=== PATIENT | female | born 1950 | race Caucasian/White ===

== ENCOUNTER 2020-06-03 09:33 | Emergency (ER) | payer MEDICARE, BC ==
[2020-06-03] MEDS ORDERED: Sodium Chloride 0.9% 10 ML Syringe FLUSH PRN (10:09)
--- NOTE | 2020-06-03 10:11 | PCM.EKG ---
#1 Interpretation EKG Date: 06/03/20 Time: 09:47 Rhythm: NSR Rate (Beats/Min): 58 Belva: Normal P-Wave: Present QRS: Normal ST-T: Normal QT: Normal Comparison: NA - No Prior EKG
[2020-06-03 10:33] VITALS: BP 126/54; PULSE 56
[2020-06-03 10:57] LABS: CHLORIDE,CL 105 mmol/L (98-107); SODIUM,NA 142 mmol/L (136-145)
--- NOTE | 2020-06-03 11:16 | CR ---
[id number] RAD/RAD Ankle Left 3V Min EXAM: RAD Ankle Left 3V Min INDICATION: INJURY/PAIN. COMPARISON: None. DISCUSSION: A well-corticated 9 x 4 mm ossicle along the medial malleolus is compatible with either an accessory ossicle or chronic ununited avulsion fracture. Tibiotalar joint effusion. Tiny age-indeterminate capsular avulsion fracture off the anterior aspect of the distal tibia seen on the lateral view. Mild tibiotalar osteoarthritis. Small plantar calcaneal spur and Achilles attachment enthesophyte. Osseous ridge along the dorsal aspect of the talar head. Midfoot osteoarthritis. IMPRESSION: 1. Tiny age-indeterminate avulsion fracture off the capsular attachment site on the anterior margin of the distal tibia. Aftab Christensen MD 06/03/20 2550 Thank you for allowing us to participate in the care of your patient.
--- NOTE | 2020-06-03 11:50 | EDM.PDOC ---
ED HPI GENERAL MEDICAL PROBLEM - General Chief Complaint: Syncope Stated Complaint: PASSED OUT Time Seen by Provider: 06/03/20 09:40 Source of Information: Reports: Patient History Limitations: Reports: No Limitations - History of Present Illness INITIAL COMMENTS - FREE TEXT/NARRATIVE: Patient comes to the emergency department today with her with concerns of a syncopal episode. As patient got up this morning did not have breakfast. She went to [place] Thursday [facility] where she was there for quite some time. She was having to stand for an extended period of time and she started to get weak in the knees and lightheaded. Somewhat nauseous. She then sat down and eventually had a syncopal episode where she woke up immediately following. She did not hit her head. She has no head neck or back pain. Prior to the symptom development she did not have any vertigo chest pain shortness of breath difficulty breathing. No paresthesias. No palpitations no diplopia. She is now feeling normal when she gets to the emergency department. The only thing she complains about is some pain to the left lateral aspect of her ankle on the lateral malleolus. She denies any paresthesias to her left lower extremity. She has had no recent fever chills cough or congestion. No exposure to anyone ill. No abdominal pain nausea or vomiting. No hematuria dysuria or urinary frequency. No cough or congestion. She does have a history of atrial fibrillation many years ago but she is not anticoagulated for this she is on metoprolol for rate control but has not had any recurrence of her atrial fibrillation.NO Covid exposure no Covid symptoms. Left Ankle Pain Score (Numeric/FACES): 2 - Related Data Allergies Allergy/AdvReac Type Severity Reaction Status Date / Time No Known Allergies Allergy Verified 06/03/20 10:26 Home Meds: Home Meds Metoprolol Tartrate 12.5 mg PO DAILY 06/03/20 [History] Multivitamin with Minerals [Multiple Vitamin] 1 tab PO DAILY 06/03/20 [History] atorvaSTATin [Lipitor] 10 mg PO BEDTIME 06/03/20 [History] Past Medical History Cardiovascular History: Reports: Afib, High Cholesterol, Hypertension Endocrine/Metabolic History: Reports: Hypothyroidism Social & Family History - Tobacco Use Tobacco Use Status *Q: Never Tobacco User ED ROS GENERAL - Review of Systems Review Of Systems: Comprehensive ROS is negative, except as noted in HPI. - Physical Exam Exam: See Below Exam Limited By: No Limitations General Appearance: Alert, WD/WN, No Apparent Distress Eye Exam: Bilateral Eye: EOMI, PERRL Ears: Normal External Exam Nose: Normal Inspection Throat/Mouth: Normal Inspection Head Exam: Atraumatic, Normocephalic Neck: Normal Inspection, Supple, Non-Tender, Full Range of Motion. No: Carotid Bruit Respiratory/Chest: No Respiratory Distress, Lungs Clear, Normal Breath Sounds, No Accessory Muscle Use, Chest Non-Tender Cardiovascular: Normal Peripheral Pulses, Regular Rate, Rhythm, No Murmur GI/Abdominal: Normal Bowel Sounds, Soft (Female) Exam: Deferred Rectal (Female) Exam: Deferred Neuro Exam (Abbreviated): Alert, Oriented, Normal Cognition, No Motor/Sensory Deficits Back Exam: Normal Inspection, Full Range of Motion Extremities: Normal Range of Motion, Non-Tender, No Pedal Edema, Normal Capillary Refill. No: Normal Inspection (Normal upper and right lower extremity. Left ankle she has some tenderness over the lateral malleolus small amount of swelling. No bruising no swelling. Able to flex and extend appropriately. No crepitus no break in the skin) Psychiatric: Normal Affect, Normal Mood Skin Exam: Warm, Dry, Intact, Normal Color, No Rash Course - Vital Signs Last Recorded V/S: Last Vital Signs Temp 97.2 F 06/03/20 09:40 Pulse 56 L 06/03/20 09:40 Resp 16 06/03/20 09:40 BP 126/54 L 06/03/20 09:40 Pulse Ox 98 06/03/20 09:40 - Orders/Labs/Meds Orders: Active Orders 24 hr Category Date Time Status EKG Documentation Completion [RC] STAT Care 06/03/20 10:09 Active Orthostatic Vital Signs [RC] ASDIRECTED Care 06/03/20 12:20 Active Sodium Chloride 0.9% [Saline Flush] Med 06/03/20 10:09 Active 10 ml FLUSH ASDIRECTED PRN Peripheral IV Insertion Adult [OM.PC] Stat Oth 06/03/20 10:09 Ordered Medication Orders Sodium Chloride (Sodium Chloride 0.9% 10 Ml Syringe) 10 ml FLUSH ASDIRECTED PRN PRN Reason: Keep Vein Open Labs: Laboratory Tests 06/03/20 06/03/20 06/03/20 Range/Units 09:44 10:15 10:24 WBC 3.6 L (4.0-10.0) x10^3/uL RBC 3.79 L (4.00-5.50) x10^6/uL Hgb 12.6 (12.0-16.0) g/dL Hct 37.9 (33.0-47.0) % MCV 100.0 H (78.0-93.0) fL MCH 33.2 H (26.0-32.0) pg MCHC 33.2 (32.0-36.0) g/dL RDW Coeff of Ponce 13.1 (10.0-15.0) % Plt Count 124 L (130-400) x10^3/uL Neut % (Auto) 64.4 (50.0-80.0) % Lymph % (Auto) 23.7 L (25.0-50.0) % [place] % (Auto) 7.5 (2.0-11.0) % Eos % (Auto) 3.6 (0.0-4.0) % Baso % (Auto) 0.8 (0.2-1.2) % Sodium (136-145) mmol/L Potassium (3.5-5.1) mmol/L Chloride (98-107) mmol/L Carbon Dioxide (21-32) mmol/L Anion Gap (5-15) mmol/L BUN (7-18) mg/dL Creatinine (0.55-1.02) mg/dL Est Cr Clr Drug Dosing mL/min Estimated GFR (MDRD) Glucose (74-106) mg/dL POC Glucose 120 H (74-106) mg/dL Lactic Acid (0.4-2.0) mmol/L Calcium (8.5-10.1) mg/dL Corrected Calcium (8.5-10.1) mg/dL Total Bilirubin (0.2-1.0) mg/dL AST (15-37) U/L ALT (14-59) U/L Alkaline Phosphatase (46-116) U/L Troponin I High Sens (<=51) ng/L Total Protein (6.4-8.2) g/dL Albumin (3.4-5.0) g/dL Globulin Albumin/Globulin Ratio Urine Color Yellow (YELLOW) Urine Appearance Slightly cloudy H (CLEAR) Urine pH 6.5 (5.0-8.0) Ur Specific Wheeler 1.025 Urine Protein Trace H (NEGATIVE) mg/dL Urine Glucose (UA) Negative (NEGATIVE) mg/dL Urine Ketones Negative (NEGATIVE) mg/dL Urine Occult Blood Negative (NEGATIVE) Urine Nitrite Negative (NEGATIVE) Urine Bilirubin Negative (NEGATIVE) Urine Urobilinogen 0.2 (0.2) EU/dL Ur Leukocyte Esterase Negative (NEGATIVE) U Hyaline Cast (Auto) Few Urine RBC Not seen (NOT SEEN) /HPF Urine WBC 0-5 (NOT SEEN) /HPF Ur Squamous Epith Cells Rare (NOT SEEN) /HPF Urine Bacteria Few H (NOT SEEN) /HPF Urine Mucus Many H (NOT SEEN) /LPF 06/03/20 06/03/20 Range/Units 10:24 10:24 WBC (4.0-10.0) x10^3/uL RBC (4.00-5.50) x10^6/uL Hgb (12.0-16.0) g/dL Hct (33.0-47.0) % MCV (78.0-93.0) fL MCH (26.0-32.0) pg MCHC (32.0-36.0) g/dL RDW Coeff of Ponce (10.0-15.0) % Plt Count (130-400) x10^3/uL Neut % (Auto) (50.0-80.0) % Lymph % (Auto) (25.0-50.0) % [place] % (Auto) (2.0-11.0) % Eos % (Auto) (0.0-4.0) % Baso % (Auto) (0.2-1.2) % Sodium 142 (136-145) mmol/L Potassium 4.0 (3.5-5.1) mmol/L Chloride 105 (98-107) mmol/L Carbon Dioxide 30 (21-32) mmol/L Anion Gap 11.0 (5-15) mmol/L BUN 13 (7-18) mg/dL Creatinine 0.8 (0.55-1.02) mg/dL Est Cr Clr Drug Dosing 66.01 mL/min Estimated GFR (MDRD) > 60 Glucose 83 (74-106) mg/dL POC Glucose (74-106) mg/dL Lactic Acid 1.7 (0.4-2.0) mmol/L Calcium 8.9 (8.5-10.1) mg/dL Corrected Calcium 9.22 (8.5-10.1) mg/dL Total Bilirubin 0.3 (0.2-1.0) mg/dL AST 15 (15-37) U/L ALT 23 (14-59) U/L Alkaline Phosphatase 106 (46-116) U/L Troponin I High Sens < 4 (<=51) ng/L Total Protein 7.2 (6.4-8.2) g/dL Albumin 3.6 (3.4-5.0) g/dL Globulin 3.6 Albumin/Globulin Ratio 1.00 Urine Color (YELLOW) Urine Appearance (CLEAR) Urine pH (5.0-8.0) Ur Specific Wheeler Urine Protein (NEGATIVE) mg/dL Urine Glucose (UA) (NEGATIVE) mg/dL Urine Ketones (NEGATIVE) mg/dL Urine Occult Blood (NEGATIVE) Urine Nitrite (NEGATIVE) Urine Bilirubin (NEGATIVE) Urine Urobilinogen (0.2) EU/dL Ur Leukocyte Esterase (NEGATIVE) U Hyaline Cast (Auto) Urine RBC (NOT SEEN) /HPF Urine WBC (NOT SEEN) /HPF Ur Squamous Epith Cells (NOT SEEN) /HPF Urine Bacteria (NOT SEEN) /HPF Urine Mucus (NOT SEEN) /LPF Meds: Medications Generic Name Dose Route Start Last Admin Trade Name Freq PRN Reason Stop Dose Admin Sodium Chloride 10 ml 06/03/20 10:09 Sodium Chloride 0.9% 10 Ml Syringe FLUSH ASDIRECTED PRN Keep Vein Open - Radiology Interpretation Free Text/Narrative:: X-ray of the left ankle per radiology shows a tiny age-indeterminate avulsion fracture of the capsular attachment site on the anterior margin of the distal tibia - Re-Assessments/Exams Free Text/Narrative Re-Assessment/Exam: 06/03/20 15:02 Her initial blood sugar bedside was approximately 120. Her EKG was unremarkable please see my note. Labs were drawn. The patient was given a meal tray. Laboratory evaluation is somewhat unremarkable. With a CBC WBC 3.6 hemoglobin 12.6 platelet count 124. CMP normal other than the POC glucose of 120 and a glucose of 83. Normal liver enzymes. Troponin less than 4. Urinalysis negative for glucose nitrites leukocytes. Was given a meal tray. She was able to ambulate about the emergency department. She has no lightheadedness dizziness weakness. She feels quite a bit better. She was placed in a stirrup type ankle strap to the left ankle. The area of the x-ray is more on the anterior aspect of the distal tibia and not where her tenderness is. This is most likely an ankle sprain that may have been caused because her states that her foot was somewhat caught up in the pew when she did her syncopal episode. I am unsure of what caused her syncopal episode. It is unlikely for it to be palpitations or atrial fibril lation as she had no symptoms but sometimes this can be asymptomatic. She had not eaten plus she was standing with her knees locked for an extended period of time so she might of had either a hypoglycemic episode or somewhat vasovagal syndrome. She is completely asymptomatic in the emergency department other than the left ankle pain. Her work-up is unremarkable and negative. We will place her in an ankle stirrup strap at this time. If she has any other episodes similar to this she should have a Holter monitor placed. Make sure that she is eating regular meals and drinking plenty of fluids and when she is standing for extended period of time make sure that her knees are not locked straight. Discharge directions as below were explained to the patient she was comfortable with this plan and her questions are answered. Departure - Departure Time of Disposition: 12:31 Disposition: Home, Self-Care 01 Clinical Impression: Syncope Qualifiers: Syncope type: unspecified Qualified Code(s): R55 - Syncope and collapse Left ankle sprain Qualifiers: Encounter type: initial encounter Involved ligament of ankle: unspecified ligament Qualified Code(s): S93.402A - Sprain of unspecified ligament of left ankle, initial encounter - Discharge Information Instructions: Syncope, [id number] Referrals: Alessia Dillard, DO [Primary Care Provider] - Forms: ED Department Discharge Additional Instructions: Make sure and eat regular meals. Stay well hydrated. When standing for long periods of time do not lock your knees straight, keep them slightly flexed. Return to the ED if new or worsening symptoms. Contact your clinic if symptoms or episode happens again consider Holter monitor. Or if you are feeling palpitations, like your heart is too fast or skipping beats. Return to the ED if new or worsening symptoms. Follow up with PCP in the next 4-6 days if any concerns. Sepsis Event Note (ED) - Evaluation Sepsis Screening Result: No Definite Risk - Focused Exam Vital Signs: Vital Signs Temp Pulse Resp BP Pulse Ox 06/03/20 09:40 97.2 F 56 L 16 126/54 L 98 - My Orders Last 24 Hours: My Active Orders 06/03/20 10:09 EKG Documentation Completion [RC] STAT Sodium Chloride 0.9% [Saline Flush] 10 ml FLUSH ASDIRECTED PRN Peripheral IV Insertion Adult [OM.PC] Stat 06/03/20 12:20 Orthostatic Vital Signs [RC] ASDIRECTED - Assessment/Plan Last 24 Hours: My Active Orders 06/03/20 10:09 EKG Documentation Completion [RC] STAT Sodium Chloride 0.9% [Saline Flush] 10 ml FLUSH ASDIRECTED PRN Peripheral IV Insertion Adult [OM.PC] Stat 06/03/20 12:20 Orthostatic Vital Signs [RC] ASDIRECTED
== END 2020-06-03 12:35 | disposition home or self-care (01) ==
LOC: VM.ED 09:33
DX: R55 Syncope and collapse (principal); S93.402A Sprain of unspecified ligament of left ankle, initial encounter; I48.91 Unspecified atrial fibrillation; E78.00 Pure hypercholesterolemia, unspecified; I10 Essential (primary) hypertension; Z79.899 Other long term (current) drug therapy; X58.XXXA Exposure to other specified factors, initial encounter; Y92.22 Religious institution as the place of occurrence of the external cause
CPT/HCPCS: 36415; 73610-LT; 80053; 81001; 82962; 83605; 84484; 85025; 93005; 93010; 99284; 99284-25